=== PATIENT | female | born 1995 | race Caucasian/White ===

== ENCOUNTER → 2017-05-17 | Outpatient (CLI) | payer BC, OTHER ==
[2017-01-14 18:20] VITALS: BP 130/75
[~2017-05-17] MED LIST: BACI28.34 TP; FLUT1DIS5 IH; SULF1TAB24 PO
--- NOTE | 2017-05-17 10:16 | RAD ---
Indication: Left wrist pain. Time of exam 10:02 AM The distal radius and ulna appear intact. There is slight cortical irregularity involving the navicular at the level of the waist. Dedicated navicular view would be useful for further evaluation. No other abnormality is seen. Metacarpals are intact. Impression: Questionable cortical irregularity of the navicular. Fracture cannot be entirely excluded. Clinical correlation to pain at this location at the snuff box is recommended. If there is, dedicated navicular view would be recommended for further evaluation.
== END | disposition home or self-care (01) ==
LOC: DXRADRC 09:52
PROVIDERS: ATTEND Nurse Practitioner Family
DX: M25.532 Pain in left wrist (principal)
CPT/HCPCS: 73100

== ENCOUNTER 2019-12-19 10:34 | Emergency (ER) | payer BC, OTHER ==
[~2019-12-19] VITALS: Ht 177.8 cm; Wt 100.0 kg
--- NOTE | 2019-12-19 11:23 | PHYS DOC ---
Past History Past Medical History: Other Past Surgical History: Tonsillectomy Alcohol Use: Occasionally Drug Use: None Adult General Chief Complaint Chief Complaint: COUGH HPI HPI Patient is a 24-year-old female who presents to the emergency department for evaluation. She states she has had a cough for the past few weeks, and over the past 24 hours developed fever, and myalgias, along with intensification of her nonproductive cough. She denies any significant shortness of breath, headache, numbness, weakness, vision changes, or any other focal pain. She has not had any nausea, vomiting, or diarrhea. She denies . Review of Systems Review of Systems Constitutional: Denies fever or chills [] Eyes: Denies change in visual acuity, redness, or eye pain [] HENT: Denies otalgia or sore throat [] Respiratory: Denies or shortness of breath [] Cardiovascular: The patient denies any shortness of breath, chest pain, palpitations, or orthopnea [] GI: Denies abdominal pain, nausea, vomiting, bloody stools or diarrhea [] : Denies dysuria or hematuria [] Musculoskeletal: Denies back pain or joint pain [] Integument: Denies rash or skin lesions [] Neurologic: Denies headache, focal weakness or sensory changes [] Allergies Allergies Allergies Coded Allergies Type Severity Reaction Last Updated Verified No Known Drug Allergies 11/06/15 No Physical Exam Physical Exam PHYSICAL EXAM: CONSTITUTIONAL: Well developed, well nourished HEAD: normocephalic, atraumatic EENT: PERRL, EOMI. Conjunctivae normal color, sclerae non-icteric; moist mucous membranes. Tympanic membranes are normal bilaterally. The oropharynx is not erythematous. NECK: Supple, non-tender; no meningismus. LUNGS: Lungs CTA, breathing even and unlabored. Normal air movement. There are no wheezes, rales, or rhonchi. HEART: Regular rate and rhythm, no murmur CHEST: No deformity; non-tender ABDOMEN: The abdomen is soft, and non-tender, no masses or bruits. EXTREM: Normal ROM; no deformity, no calf tenderness. Normal pulses palpable in all extremities. There is no pedal edema. SKIN: No rash; no diaphoresis NEURO: Alert; normal speech and cognition; CN's grossly intact; strength grossly intact without focal deficit. BACK: No CVA TTP. EKG EKG [] Radiology/Procedures Radiology/Procedures PROCEDURE: CHEST PA & LATERAL CHEST PA LATERAL History: Cough Comparison: May 22, 2012 Findings: 2 views of the chest are submitted. There is no infiltrate, pneumothorax, or effusion. Pericardial cardiac silhouette is within normal limits in size. Impression: 1. There is no radiographic evidence of acute cardiopulmonary disease. [] Course & Med Decision Making Course & Med Decision Making Pertinent Labs and Imaging studies reviewed. (See chart for details) []Rapid flu negative. Patient remains stable. I discussed test results, the need for close follow-up, and return precautions. Dragon Disclaimer Dragon Disclaimer This electronic medical record was generated, in whole or in part, using a voice recognition dictation system. Departure Departure: Impression: Primary Impression: Upper respiratory infection Disposition: HOME, SELF-CARE Condition: STABLE Patient Instructions: Upper Respiratory Infection, Adult SUNDAY HAJI MD Dec 19, 2019 11:23
[2019-12-19] MEDS ORDERED: ACETAMINOPHEN 500 MG TABLET PO ONE (11:40)
--- NOTE | 2019-12-19 11:40 | RAD ---
CHEST PA LATERAL History: Cough Comparison: May 22, 2012 Findings: 2 views of the chest are submitted. There is no infiltrate, pneumothorax, or effusion. Pericardial cardiac silhouette is within normal limits in size. Impression: 1. There is no radiographic evidence of acute cardiopulmonary disease. Electronically signed by: Pee Ge MD (12/19/2019 11:37 AM) [id number]
[2019-12-19 11:57] LABS: INFLUENZA A PATIENT NEGATIVE (NEGATIVE); INFLUENZA B PATIENT NEGATIVE (NEGATIVE)
[2019-12-19 12:25] VITALS: BP 108/50
== END 2019-12-19 12:23 | disposition home or self-care (01) ==
LOC: ER 10:34
DX: J06.9 Acute upper respiratory infection, unspecified (principal)
CPT/HCPCS: 71046; 87804; 99285

== ENCOUNTER 2020-12-18 18:44 | Emergency (ER) | payer BC, OTHER ==
[~2020-12-18] VITALS: Ht 167.6 cm; Wt 114.5 kg
--- NOTE | 2020-12-18 19:37 | PHYS DOC ---
Past History Past Medical History: No Pertinent History Past Surgical History: No Surgical History Alcohol Use: Rarely Drug Use: None Adult General HPI HPI Patient is a 25-year-old female with a past medical history of asthma, anxiety who presents with a chief complaint of urinary frequency and urgency as well as anxiety. States over the last couple of days she has had increased urinary frequency as well as urgency and when she goes to urinate sometimes there is significant amounts of urine and other times there is just a few drops. States she has had some like this long ago, and was diagnosed with a urinary tract infection. States that she is worried that she does have one, and is causing her anxiety and thinks she has shortness of breath. Denies any recent travel, trauma, illnesses, fevers, known ill contacts, Covid/flu symptoms. Denies any chest pain, abdominal pain, nausea, vomiting, diarrhea, dysuria, hematuria or blood in the stool. Denies any dyspnea on exertion, wheezing, orthopnea, PND or edema. Review of Systems Review of Systems Review of systems otherwise unremarkable except noted in HPI Allergies Allergies Allergies Coded Allergies Type Severity Reaction Last Updated Verified No Known Drug Allergies 11/06/15 No Physical Exam Physical Exam Constitutional: Well developed, well nourished, no acute distress, non-toxic appearance. [] HENT: Normocephalic, atraumatic, oropharynx moist, no oral exudates, Eyes: conjunctiva normal, no discharge. [] Neck: Normal range of motion, no tenderness, Cardiovascular:Heart rate regular rhythm, no murmur [] Lungs & Thorax: Bilateral breath sounds clear to auscultation [] Abdomen: soft, no tenderness, no masses, no pulsatile masses. [] Skin: Warm, dry, no erythema, no rash. [] Back: No tenderness, no CVA tenderness. [] Extremities: No tenderness, no cyanosis, no clubbing, ROM intact, no edema. [] Neurologic: Alert and oriented X 3, normal motor function, normal sensory function, no focal deficits noted. [] Psychologic: Affect normal, judgement normal, mood normal. [] Current Patient Data Lab Results Laboratory Tests Test 12/18/20 19:22 POC Urine HCG, Qualitative hcg negative (Negative) EKG EKG EKG with a rate of 63, QRS of 92, QTC of 388, no STEMI [] Radiology/Procedures Radiology/Procedures Chest x-ray with possible consolidation in the left upper lobe, with peribronchial fullness, and no pneumothorax [] Heart Score HEART Score for Chest Pain: HEART Score for Chest Pain Response (Comments) Value History Slighlty/Non-Suspicious 0 ECG Normal 0 Age < 45 0 Risk Factors 1 or 2 Risk Factors 1 Troponin < Normal Limit 0 Total 1 Risk Factors: Risk Factors: DM, Current or recent (<one month) smoker, HTN, HLP, family his tory of CAD, obesity. Risk Scores: Risk Factors: DM, Current or recent (<one month) smoker, HTN, HLP, family history of CAD, obesity. Course & Med Decision Making Course & Med Decision Making Patient is a 25-year-old female who presents with urinary symptoms, anxiety and feelings of shortness of breath Vital signs not concerning. Physical exam noted above. EKG noted and not concerning. Troponin normal. Low risk Wells. PERC negative. Patient stated she quit smoking recently and started vaping. negative. Chest x-ray with questionable left upper lobe consolidation and urinary sample with bacteria and negative nitrite/leukocyte Estrace but patient is symptomatic. Treating patient with Levaquin to cover both possible pneumonia and urinary tract infection. Discussed all findings with patient and advised to cease both tobacco use and vaping as these could cause serious respiratory issues especially since she has asthma. Advised to follow-up first thing Monday with her primary care physician to discuss her ED visit and need for follow-up visit. Advised to come back to the ED with any new or concerning symptoms. [] Dragon Disclaimer Dragon Disclaimer This electronic medical record was generated, in whole or in part, using a voice recognition dictation system. Departure Departure: Impression: Primary Impression: Urinary frequency Additional Impressions: Urinary urgency Anxiety Abnormal chest x-ray Disposition: 01 DC HOME SELF CARE/HOMELESS Condition: GOOD Referrals: KEYONA BRYAN MD (PCP) Patient Instructions: Anxiety and Panic Attacks, Jczt-[id number], Pneumonia, Adult, Urinary Tract Infection, [id number] Additional Instructions: Please read all the attached information. Please take your antibiotics as prescribed. Please consume plenty of fluids and eat a normal diet. Please call your primary care physician first thing Monday to discuss ED visit and set up a post ER follow-up visit. Please come back to the emergency department immediately with any new or concerning symptoms. Scripts Levofloxacin (LEVOFLOXACIN) 500 Mg Tablet 1 TAB PO DAILY for infection for 6 Days, #6 TAB Prov: JAVI RICHARD MD 12/18/20 Problem Qualifiers JAVI RICHARD MD Dec 18, 2020 19:37
[2020-12-18 19:45] LABS: BILIRUBIN,URINE NEG (NEG); CLARITY,URINE CLEAR; COLOR,URINE YELLOW; GLUCOSE,URINE NEG (NEG)
[2020-12-18] MEDS ORDERED: ALBU2.5V14 NEB (19:45)
[2020-12-18] MEDS ORDERED: [UNRECOGNIZED DRUG - OTHER] (19:45)
[2020-12-18] MEDS ORDERED: [UNRECOGNIZED DRUG - OTHER] (19:45)
[2020-12-18] MEDS ORDERED: ALBU2.5V8 INH (19:45)
[2020-12-18 19:46] LABS: BACTERIA,URINE FEW /HPF (0-FEW); NITRITE,URINE NEG (NEG); RBC,URINE OCC /HPF (0-2); SQUAMOUS EPITHELIAL CELL,UR FEW /LPF; WBC,URINE OCC /HPF (0-4)
[2020-12-18] MEDS ORDERED: FLUO20CA16 PO (20:11)
[2020-12-18] MEDS ORDERED: FLUT1BLS9 IH (20:11)
[2020-12-18] MEDS ORDERED: levoFLOXacin 500 MG TABLET PO ONE (21:00)
[2020-12-18] MEDS ORDERED: LEVO500T8 PO (21:07)
[2020-12-18 21:10] VITALS: BP 132/80
--- NOTE | 2020-12-18 21:16 | RAD ---
EXAM: AP View of the chest DATE: 12/18/2020 7:05 PM INDICATION: Shortness of breath COMPARISON: 12/19/2019 FINDINGS: The heart is not enlarged. Mediastinal and hilar contours are normal. No focal parenchymal airspace opacity. No pleural effusion or pneumothorax. IMPRESSION: 1. No radiographic evidence for acute cardiopulmonary process. Electronically signed by: Brando Mason MD (12/18/2020 9:13 PM) DEVEN
--- NOTE | 2020-12-19 07:33 | EKG ---
[address] [address] Test Date: 2020-12-18 Test Time: 19:18:47 Pat Name: ZAC MARSH Department: Room: Gender: F Ip Counsel: : 1995 Requested By: JAVI RICHARD Order Number: [id number] Reading MD: Measurements Intervals Boyd Rate: 63 P: 34 IL: 140 QRS: 59 QRSD: 92 T: 48 QT: 376 QTc: 388 Interpretive Statements SINUS RHYTHM NORMAL ECG RI6.02 No previous ECG available for comparison
== END 2020-12-18 21:30 | disposition home or self-care (01) ==
LOC: ER 18:44
DX: R35.0 Frequency of micturition (principal); R39.15 Urgency of urination; F41.9 Anxiety disorder, unspecified; R93.1 Abnormal findings on diagnostic imaging of heart and coronary circulation; Z87.440 Personal history of urinary (tract) infections
CPT/HCPCS: 36415; 71045; 81001; 81025; 84484; 93005; 99285

== ENCOUNTER 2021-05-20 00:29 | Emergency (ER) | payer OTHER ==
[~2021-05-20] VITALS: Ht 167.6 cm; Wt 124.1 kg
[~2021-05-20 00:29] MED LIST changes: +ALBU2.5V14 NEB; +ALBU2.5V8 INH; +FLUO20CA16 PO; +FLUT1BLS9 IH; +LEVO500T8 PO; +[UNRECOGNIZED DRUG - OTHER]; +[UNRECOGNIZED DRUG - OTHER]
--- NOTE | 2021-05-20 00:53 | PHYS DOC ---
Past History Past Medical History: Anxiety, Asthma, Other Additional Past Medical Histor: pre-menstrual dysphoric disorder (PMDD) Past Surgical History: Tonsillectomy, Tubal ligation, Other Additional Past Surgical Histo: wisdom teeth Smoking: Cigarettes, Less than 1pk/day Additional Smoking Information: Vapes Alcohol Use: Rarely Drug Use: None General Adult EDM: Chief Complaint: MECHANICAL FALL HPI: HPI: 26-year-old female presents with report of forehead contusion which occurred at 2230 this evening. Patient reports she tripped and struck the front of her head. Denies loss of conscious. Denies neck pain. Denies . Denies use of blood thinners. Patient report concern secondary to swelling and discomfort. Denies epistaxis or bleeding from ears. Review of Systems: Review of Systems: Constitutional: Denies fever or chills Eyes: Denies redness or eye pain HENT: Denies nasal congestion or epistaxis Respiratory: Denies cough or shortness of breath Cardiovascular: Denies chest pain or palpitations GI: Denies abdominal pain, nausea, or vomiting : Denies dysuria or hematuria Musculoskeletal: Denies back pain or neck pain Integument: Denies rash; reports forehead contusion and swelling Neurologic: Reports headache; denies focal weakness or sensory changes Complete systems were reviewed and found to be within normal limits, except as documented in this note. Allergies: Allergies: Allergies Coded Allergies Type Severity Reaction Last Updated Verified azithromycin Allergy Unknown 05/20/21 Yes Physical Exam: PE: Constitutional: Well developed, well nourished, no acute distress, non-toxic appearance HENT: Normocephalic, left forehead contusion, TMs clear bilaterally, no de souza sign, no epistaxis, several nose piercings appreciated, tongue piercing noted Eyes: PERRL, EOMI, conjunctiva normal, no discharge, no nystagmus, no periorbital ecchymosis appreciated Neck: Normal range of motion, no midline tenderness, supple Lungs & Thorax: No respiratory distress, equal chest rise and fall Skin: Warm, dry, no erythema, left forehead contusion Extremities: No tenderness, ROM intact, no edema Neurologic: Alert and oriented X 3, normal motor function, normal sensory function, no focal deficits noted, cerebellar function intact Psychologic: Affect normal, judgment normal Current Patient Data: Vital Signs: Vital Signs Date Time Temp Pulse Resp B/P (MAP) Pulse Ox O2 Delivery O2 Flow Rate FiO2 05/20/21 00:36 98.0 90 18 130/64 (86) 98 Room Air EKG: EKG: [] Radiology/Procedures: Radiology/Procedures: [] Heart Score: C/O Chest Pain: N/A Course & Med Decision Making: Course & Med Decision Making Patient presents with report of mechanical trip and fall striking her forehead. Patient neurologically intact. No midline cervical spine tenderness appreciated. A forehead contusion was noted. Patient denies use of blood thinners. Denies loss of consciousness. Denies nausea. No signs of basilar skull fracture on physical exam. Ice applied. Patient advised to use ov ny-iem-wijtsvu ibuprofen and or Tylenol for pain or discomfort. CT imaging risk of radiation exposure outweighing benefit at this time given patient's physical exam findings and low risk. Patient stable for discharge with outpatient follow-up with PCP. Discussed findings and plan with patient and family, who acknowledge understanding and agreement. Kaitlynn Disclaimer: Kaitlynn Disclaimer: This electronic medical record was generated, in whole or in part, using a voice recognition dictation system. Departure Departure: Impression: Primary Impression: Forehead contusion Qualified Codes: S00.83XA - Contusion of other part of head, initial encounter Disposition: HOME / SELF CARE / HOMELESS Condition: STABLE Referrals: KEYONA BRYAN MD (PCP) Patient Instructions: Concussion and Brain Injury, Ralv-cc-Rore, Facial or Scalp Contusion, Cewg-ve-Jxvo Additional Instructions: Ice area of discomfort 20 minutes on then leave off next 20 minutes. Repeat several times daily for the next 2 days. Take rakn-pot-qcgnxde ibuprofen and or Tylenol for pain or discomfort. HERMINIA SANCHES DO May 20, 2021 00:53
[2021-05-20 01:03] VITALS: BP 125/70
== END 2021-05-20 01:05 | disposition home or self-care (01) ==
LOC: ER 00:29
DX: S00.83XA Contusion of other part of head, initial encounter (principal); J45.909 Unspecified asthma, uncomplicated; F17.210 Nicotine dependence, cigarettes, uncomplicated; Z98.51 Tubal ligation status; Z88.1 Allergy status to other antibiotic agents; W18.09XA Striking against other object with subsequent fall, initial encounter; Y93.89 Activity, other specified; Y92.89 Other specified places as the place of occurrence of the external cause; Y99.8 Other external cause status
CPT/HCPCS: 99282

== ENCOUNTER 2022-04-19 06:01 | Emergency (ER) | payer SELFPAY ==
[~2022-04-19] VITALS: Ht 167.6 cm; Wt 124.1 kg
[~2022-04-19 06:01] MED LIST changes: -LEVO500T8 PO; +LEVO500T9 PO
--- NOTE | 2022-04-19 06:08 | PHYS DOC ---
Past History Past Medical History: Anxiety, Asthma, Other Additional Past Medical Histor: pre-menstrual dysphoric disorder (PMDD) Past Surgical History: Tonsillectomy, Tubal ligation, Other Additional Past Surgical Histo: wisdom teeth, ovarian cyst Smoking: Cigarettes, Less than 1pk/day Alcohol Use: None Drug Use: None General Adult EDM: Chief Complaint: ABDOMINAL PAIN HPI: HPI: Patient is a 26-year-old female here with report of almost 2 weeks of vaginal bleeding. She reportedly did not have any sort of menstrual cycle since September 2021 until April 06. She reports generalized pelvic cramping/menstrual cramping. She reports passing some clots. She denies lightheadedness or dizziness. She denies vaginal discharge. She denies urinary symptoms. She denies constipation, diarrhea, nausea, vomiting, anorexia. No focal abdominal or pelvic pain. She has a family medicine doctor and [employer], she has not made any attempt to contact either of these physicians to discuss this issue. She has had a previous tubal ligation. She is not currently taking any oral contraceptives, no exogenous hormones, no recent cessation of exogenous hormones reported. Review of Systems: Review of Systems: Constitutional: Denies fever or chills Respiratory: Denies cough or shortness of breath Cardiovascular: Denies chest pain or edema GI: Lower abdominal/pelvic pain. Denies nausea, vomiting, diarrhea, constipation. : Denies urinary symptoms. Reports pelvic pain, menstrual cramping, vaginal bleeding. Musculoskeletal: Reports low back pain. Integument: Denies rash Neurologic: Denies headache, focal weakness or sensory changes, denies lightheadedness or dizziness Psychiatric: Anxiety Allergies: Allergies: Allergies Coded Allergies Type Severity Reaction Last Updated Verified azithromycin Allergy Unknown 05/20/21 Yes Physical Exam: PE: Constitutional: Well developed, well nourished, no acute distress, non-toxic appearance. [] HENT: Normocephalic, atraumatic Eyes: Conjunctive are normal, sclera anicteric Neck: Normal range of motion, no tenderness, supple, no stridor. [] Cardiovascular:Heart rate regular rhythm, +2 radial pulses bilaterally Lungs & Thorax: Bilateral breath sounds clear to auscultation [] Abdomen: Abdomen is obese, soft, nondistended, nontender to palpation. Normal bowel sounds. No CVA tenderness. No palpable masses organomegaly. I am unable to elicit any tenderness objectively on exam Skin: Warm, dry, no erythema, no rash. [] Back: No tenderness, no CVA tenderness. [] Extremities: No tenderness, no cyanosis, no clubbing, ROM intact, no edema. [] Neurologic: Alert and oriented X 3, normal motor function, normal sensory function, no focal deficits noted. [] Psychologic: Anxious, overall cooperative EKG: EKG: [] Radiology/Procedures: Radiology/Procedures: IMAGING REPORT Signed PATIENT: ZAC MARSH ACCOUNT: [id number] : 1995 LOCATION: ER AGE: 26 SEX: F EXAM STATUS: REG ER ORD. PHYSICIAN: NASRIN OCAMPO DO REASON: pelvic pain; heavy vaginal bleeding x12 days PROCEDURE: US PELVIS W/TV INDICATION: Reason: pelvic pain; heavy vaginal bleeding x12 days / Spl. Instructions: / History: COMPARISON: None. TECHNIQUE: Grayscale and color ultrasound images uterus and adnexa. Transabdominal and transvaginal images obtained. Transvaginal images were needed to better visualize structures that were limited on transabdominal imaging. FINDINGS: Uterus: 103 x 53 x 48 mm. 21 mm endometrial stripe. Right Ovary: 29 x 23 x 20 mm. Left Ovary: 35 x 31 x 31 mm. Vascular flow identified to bilateral ovaries. Cystic changes of the lower uterine segment. Small free fluid in the pelvis. IMPRESSION: * Thickening of a portion of the endometrial stripe including at lower uterine segment. Possible causes would include hyperplasia or endometrial lesion but would also correlate with hCG to ensure there is not an alternative cause such as thickening associated with early . No gestational sac is seen. There is some suspected nabothian cysts at the lower uterine segment. Electronically signed by: Jus Greene MD (04/19/2022 8:15 AM) [id number] DICTATED AND SIGNED BY: JUS GERENE MD DATE: 04/19/22807 CC: NASRIN OCAMPO DO; KEYONA BRYAN MD ~ Heart Score: C/O Chest Pain: No Risk Factors: Risk Factors: DM, Current or recent (<one month) smoker, HTN, HLP, family history of CAD, obesity. Risk Scores: Score 0 - 3: 2.5% MACE over next 6 weeks - Discharge Home Score 4 - 6: 20.3% MACE over next 6 weeks - Admit for Clinical Observation Score 7 - 10: 72.7% MACE over next 6 weeks - Early Invasive Strategies Course & Med Decision Making: Course & Med Decision Making Pertinent Labs and Imaging studies reviewed. (See chart for details) The patient is given IV Toradol, she is resting comfortably and reports improvement of pain. I discussed the findings, differential diagnosis and plan of care with her. I discussed that her endometrium appears to be thickened, underlying abnormality cannot be completely excluded on ultrasound, I explained that she needs to contact her PCP and her typesetting machine tender for follow-up. She may require hysteroscopy and/or biopsy of an endometrial lesion. At this time, there is no indication for emergent transfer or admission, she is not anemic, she is hemodynamically stable, she is resting comfortably, she has a benign nonsurgical abdominal exam. Return precautions are given. She verbalizes understanding. Kaitlynn Disclaimer: Kaitlynn Disclaimer: This electronic medical record was generated, in whole or in part, using a voice recognition dictation system. Departure Departure: Impression: Primary Impression: Abnormal uterine bleeding Additional Impression: Pelvic pain Disposition: HOME / SELF CARE / HOMELESS Condition: STABLE Referrals: KEYONA BRYAN MD (PCP) Patient Instructions: Abnormal Uterine Bleeding, Dysmenorrhea, Pelvic Pain, Female Additional Instructions: Use the medication as needed/as directed. Stay hydrated, drink plenty of fluids. Return to the ER immediately for more severe localized abdominal pain, uncontrolled vomiting, dehydration, heavy or uncontrolled bleeding, severe dizziness, passing out or for any other concerns. Please contact your family medicine doctor to discuss this issue further. Also, you may require further outpatient intervention or evaluation by your typesetting machine tender. Scripts Tramadol Hcl (ULTRAM) 50 Mg Tablet 1 TAB PO PRN Q6HRS PRN for pain MDD 4 Tablet(s), #15 TAB 0 Refills Prov: SELVIN OCAMPON Juan DO 04/19/22 Ibuprofen (IBUPROFEN) 800 Mg Tablet 1 TAB PO TID for pain, #20 TAB 1 Refill Prov: TERRENCENASRIN Juan DO 04/19/22 NASRIN OCAMPO DO April 19, 2022 06:08
[2022-04-19 06:43] LABS: BASO # 0.2 x10^3/uL (0.0-0.2); BASO % 1 % (0-3); EOS # 0.4 x10^3/uL (0.0-0.7); EOS % 2 % (0-3); HEMATOCRIT 37.6 % (36.0-47.0); HEMOGLOBIN 12.4 g/dL (12.0-15.5); LYMPH # 4.8 x10^3/uL (1.0-4.8); LYMPH % 28 % (24-48); MEAN CORPUSCULAR HEMOGLOBIN 29 pg (25-35); MEAN CORPUSCULAR HGB CONC 33 g/dL (31-37); MEAN CORPUSCULAR VOLUME 86 fL (79-100); MONO # 0.8 x10^3/uL (0.0-1.1); MONO % 5 % (0-9); NEUT # 10.9 x10^3uL (1.8-7.7); NEUT % 64 % (31-73); PLATELET COUNT 284 x10^3/uL (140-400); RED BLOOD COUNT 4.35 x10^6/uL (3.50-5.40); RED CELL DISTRIBUTION WIDTH 14.7 % (11.5-14.5); WHITE BLOOD COUNT 17.1 x10^3/uL (4.0-11.0)
[2022-04-19 06:55] LABS: CALCIUM 8.8 mg/dL (8.5-10.1)
[2022-04-19] MEDS ORDERED: KETOROLAC 15 MG/ML VIAL. IVP ONE (07:00)
[2022-04-19 07:01] LABS: ALBUMIN 3.2 g/dL (3.4-5.0); ALBUMIN/GLOBULIN RATIO 0.8 (1.0-1.7); TOTAL BILIRUBIN 0.6 mg/dL (0.2-1.0)
[2022-04-19 07:02] LABS: BACTERIA,URINE 0 /HPF (0-FEW); CLARITY,URINE CLEAR; COLOR,URINE YELLOW; GLUCOSE,URINE NEG (NEG); NITRITE,URINE NEG (NEG); SQUAMOUS EPITHELIAL CELL,UR FEW /LPF; U PREG PATIENT NEGATIVE (NEG); UROBILINOGEN,URINE 0.2 mg/dL (0.2 mg/dL); WBC,URINE OCC /HPF (0-4)
--- NOTE | 2022-04-19 08:18 | RAD ---
INDICATION: Reason: pelvic pain; heavy vaginal bleeding x12 days / Spl. Instructions: / History: COMPARISON: None. TECHNIQUE: Grayscale and color ultrasound images uterus and adnexa. Transabdominal and transvaginal images obtained. Transvaginal images were needed to better visualize structures that were limited on transabdominal imaging. FINDINGS: Uterus: 103 x 53 x 48 mm. 21 mm endometrial stripe. Right Ovary: 29 x 23 x 20 mm. Left Ovary: 35 x 31 x 31 mm. Vascular flow identified to bilateral ovaries. Cystic changes of the lower uterine segment. Small free fluid in the pelvis. IMPRESSION: * Thickening of a portion of the endometrial stripe including at lower uterine segment. Possible ca uses would include hyperplasia or endometrial lesion but would also correlate with hCG to ensure ther e is not an alternative cause such as thickening associated with early . No gestational sac is seen. There is some suspected nabothian cysts at the lower uterine segment. Electronically signed by: Adilson Bacon MD (04/19/2022 8:15 AM) [id number]
[2022-04-19] MEDS ORDERED: IBUP800T19 PO (08:34)
[2022-04-19] MEDS ORDERED: TRAM-48 PO (08:34)
[2022-04-19 08:53] VITALS: BP 115/63
[2022-04-19 09:18] LABS: % ATYL 4 % (0-0); % BANDS 2 % (0-9); % LYMPHS 60 % (24-48); % MONOS 2 % (0-10); % SEGS 32 % (35-66)
[2022-04-19 09:32] LABS: PLT ESTIMATE ADEQUATE (ADEQUATE)
== END 2022-04-19 08:57 | disposition home or self-care (01) ==
LOC: ER 06:01
DX: N93.9 Abnormal uterine and vaginal bleeding, unspecified (principal); R10.2 Pelvic and perineal pain; M54.59 Other low back pain; F41.9 Anxiety disorder, unspecified; J45.909 Unspecified asthma, uncomplicated; F17.210 Nicotine dependence, cigarettes, uncomplicated; Z98.51 Tubal ligation status; Z88.1 Allergy status to other antibiotic agents
CPT/HCPCS: 36415; 76830; 76856; 80053; 81001; 81025; 83690; 85007; 85025; 96374; 99284; J1885